=== PATIENT | female | born 1980 | race Caucasian/White ===

== ENCOUNTER → 2017-01-12 | Outpatient (CLI) | payer OTHER ==
--- NOTE | 2017-01-12 16:03 | XR ---
EXAMINATION TYPE: XR finger LT DATE OF EXAM: 01/12/2017 COMPARISON: NONE HISTORY: Jammed finger, pain TECHNIQUE: 3 views left middle finger FINDINGS: There is an oblique fracture extending into the intra-articular surface of the posterior pr oximal portion distal phalanx left middle finger. Subtle diastases is present. Soft tissues are normal. IMPRESSION: 1. Fracture of the dorsal proximal distal phalanx middle finger with intra-articular extension.
== END | disposition home or self-care (01) ==
LOC: RADXRYALE 09:58
PROVIDERS: ATTEND Physician Assistant Medical
DX: S62.633A Displaced fracture of distal phalanx of left middle finger, initial encounter for closed fracture (principal); X58.XXXA Exposure to other specified factors, initial encounter

== ENCOUNTER → 2017-08-18 | Outpatient (CLI) | payer OTHER ==
--- NOTE | 2017-08-18 09:46 | XR ---
EXAMINATION TYPE: XR hand complete RT, XR finger RT DATE OF EXAM: 08/18/2017 CLINICAL HISTORY: Right hand in particular thumb pain after volleyball injury. TECHNIQUE: Frontal, lateral and oblique images of the right hand are obtained. Frontal and lateral i mages of the right thumb are obtained. COMPARISON: None. FINDINGS: There is no acute fracture/dislocation evident in the right hand. The joint spaces in the right hand appear within normal limits. The overlying soft tissue appears unremarkable. Images of right thumb show no acute fracture or dislocation. Overlying soft tissue is unremarkable. J oint spaces are preserved. IMPRESSION: There is no acute fracture or dislocation in the right thumb or hand.
== END | disposition home or self-care (01) ==
LOC: RADXRYALE 09:12
PROVIDERS: ATTEND Physician Assistant Medical
DX: S60.931A Unspecified superficial injury of right thumb, initial encounter (principal)

== ENCOUNTER → 2017-10-12 | Outpatient (CLI) | payer OTHER ==
--- NOTE | 2017-10-12 17:51 | CONS ---
CONSULTATION REASON FOR CONSULTATION: Consultation done for sleep apnea. 37-year-old female patient, obese, works at [employer] [facility]. Referred to me for evaluation of sleep apnea. The patient has loud snoring and she has been snoring since 2012 really bad. She lost some weight. Overall she has gained a total of 50 pounds since 2007. She at times wakes up in the middle of night choking and this has occurred 3 times. The last being last night. No nocturia. No episodes of waking up gasping for air. She dreams a lot and she occasionally sleep talks. During the day, she wakes up tired. She has to wait until her gets back from work and for that reason, she goes to bed late around 1:00 am, and she wakes up at 5:00 a.m. in the morning. Obviously she has a component of insufficient sleep syndrome. On weekends, she is compensating and she goes to bed between 1:00 am until 9:00 am in the morning. She can fall asleep easily within seconds and she is tired and sleepy during the day. No restlessness in the lower extremities. Sleep is fragmented at times she wakes up to urinate. She is drinking 4-5 cups of soda on a daily basis. No caffeine or alcohol intake. She cannot take any naps as the patient is quite busy at work. She has PCO and she is obese and she has also history of hypothyroidism. PAST MEDICAL HISTORY: 1. Obesity PCO obesity. 2. PCO. 3. Hypothyroidism. SURGICAL HISTORY: Includes cholecystectomy. DRUG ALLERGIES: Not known. OUTPATIENT MEDICATION: Includes Synthroid 50 mcg p.o. daily, metformin 500 mg at bedtime. Vitamin D3 5000 units daily. Drug allergies are not known. SOCIAL HISTORY: Nonsmoker, no history of alcohol. No history of IV drugs. FAMILY HISTORY: Father has obstructive sleep apnea. Wears CPAP. REVIEW OF SYSTEMS: 12-point review of system was done. Positive findings are mentioned above in the history of present illness. PHYSICAL EXAMINATION: BP is 136/80, pulse 92, respirations 16, temperature 98.1. Saturation 97% on room air. Weight is 283, height is 5 feet, 3 inches, BMI of 49, neck size 17 inches. Brandamore score is 8. General appearance: Calm, comfortable. Head is atraumatic, normocephalic. NECK: Supple. Overbite. Mallampati class 2-3. No goiter or neck masses. LUNGS: Clear to auscultation. HEART: Sounds regular rate and rhythm. Normal S1, S2. No S3. No murmurs. ABDOMEN: Soft, nontender. No organomegaly. EXTREMITIES: No edema. No cyanosis or clubbing. NEUROLOGIC: The patient is alert and oriented x3. There is no focal neurological deficits. Psychiatric: The patient has no anxiety or depression. IMPRESSION: 1. Obstructive sleep apnea clinically suspected, currently under investigation. 2. Mouth breather with an overbite and Mallampati class 2-3. 3. Obesity BMI of 49. 4. Hypersomnia and fatigue with an Brandamore score of 8. 5. PCO. 6. Hypothyroidism. PLAN: 1. Encourage weight loss. 2. Eliminate caffeinated beverages. 3. Extend sleep hours as the patient has an obvious component of insufficient sleep syndrome and she is averaging around 5-6 hours, would like to ask her to sleep 7 hours at least and she has to go to bed earlier if possible. 4. Proceed with a screening polysomnogram looking for sleep apnea. The patient has clinical anatomic features to suggest that. MMODL / IJN: [id number] /
== END | disposition home or self-care (01) ==
LOC: SLEEP 16:21
PROVIDERS: ATTEND Internal Medicine Critical Care Medicine
DX: G47.10 Hypersomnia, unspecified (principal); E66.9 Obesity, unspecified; E03.9 Hypothyroidism, unspecified; E28.2 Polycystic ovarian syndrome; Z68.42 Body mass index [BMI] 45.0-49.9, adult; Z79.899 Other long term (current) drug therapy; Z79.84 Long term (current) use of oral hypoglycemic drugs; Z90.49 Acquired absence of other specified parts of digestive tract
CPT/HCPCS: 99211

== ENCOUNTER → 2018-03-07 | Outpatient (CLI) | payer OTHER ==
--- NOTE | 2018-03-07 16:29 | PN ---
PROGRESS NOTE This is a compliancy check on this 37-year-old female patient who was diagnosed having obstructive sleep apnea which is severe. She is coming in for a compliancy check regarding her new CLARISSE treatment. The patient has severe CLARISSE with an AHI of 13 and she was titrated to a CPAP pressure of 13 cm of water. She is benefitting from treatment. She feels great; much more refreshed and alert during the day. Sleep quality is improved. Only complaint is aerophagia. She also eliminated the RAMP, as the patient was feeling that the pressure was too low at the start of the treatment. Based on 30- day compliancy, she has been hitting more than 4 hours 73% of the time. Her average CPAP use is 5 hours and 19 minutes. Her use is 90% of the time, which is 27/30. Her AHI while on treatment is down to 0.8. Leak factor is 9.2 L. She has no major complaints. She is benefitting from treatment and she is quite happy and content. REVIEW OF SYSTEMS: Twelve-point review of systems was done. Positive for aerophagia. No nausea. No vomiting. No diarrhea. No flatus. There is occasional abdominal distention following CPAP therapy. No headaches. No altered mentation. No restlessness in the lower extremities. No falls. No difficulties with memory or concentration. Sleep quality is improved. No heartburn. No chest pain. No shortness of breath. No difficulties with concentration or memory. PHYSICAL EXAMINATION: BP is 117/73, pulse 88, respirations 16. [place] score is 6. Saturation is 98% on room air. Weight is 295. GENERAL APPEARANCE: Calm, comfortable. HEAD: Atraumatic, normocephalic. NECK: Supple. No JVD. No goiter or masses. Mallampati class IV. LUNGS: Clear to auscultation. HEART: Heart sounds are regular rate and rhythm. Normal S1, S2. No S3. There are no murmurs. ABDOMEN: Soft, nontender. No organomegaly. EXTREMITIES: No edema. No cyanosis or clubbing. NEUROLOGIC: Alert and oriented x3. No focal neurological deficit. IMPRESSION: 1. Severe obstructive sleep apnea with an AHI of 33, currently on CPAP with a pressure of 13. 2. Aerophagia. 3. PCO. 4. Obesity with a body mass index of 50. 5. Hypersomnia, recovered. 6. Hypothyroidism. PLAN: 1. Drop CPAP pressure down to 11 cm of water. 2. This will be temporary, just to assess the patient's symptoms of aerophagia. Will decide on the final target pressure accordingly based on her clinical response and based on the observed side effects. In general she is benefitting from treatment and she feels much better. CARITO / JOSEN: [id number] /
== END | disposition home or self-care (01) ==
LOC: SLEEP 13:10
PROVIDERS: ATTEND Internal Medicine Critical Care Medicine
DX: G47.33 Obstructive sleep apnea (adult) (pediatric) (principal); F45.8 Other somatoform disorders; H26.499 Other secondary cataract, unspecified eye; E03.9 Hypothyroidism, unspecified; E66.9 Obesity, unspecified; Z68.43 Body mass index [BMI] 50.0-59.9, adult; Z99.89 Dependence on other enabling machines and devices

== ENCOUNTER → 2018-06-06 | Outpatient (CLI) | payer OTHER ==
--- NOTE | 2018-06-06 18:35 | PN ---
PROGRESS NOTE Mela is 37, works in a group home, diagnosed having obstructive sleep apnea, severe, with an AHI of 33, initially treated with CPAP pressure of 13. She had difficulty tolerating the treatment and she was dropped down to 11. Since then she is doing great, waking up much more alert and awake. She is able to tolerate the treatment. Much more refreshed during the day. She does not fall asleep during day-to- day activities. Her weight is up from 283 to 296 and she has gained around 13 pounds following Thanksgiving. Compliance data show that the patient has been averaging more than 6.0 hours per night. Her CPAP use for more than 4 hours is above 90%. Leak is 26 L/minute. AHI is down to 0.7 while on treatment. She has no complaints. REVIEW OF SYSTEMS: Twelve-point review of systems was done. Positive findings were all mentioned above in the history of present illness. She is doing extremely well. PHYSICAL EXAMINATION: BP is 136/91, pulse 90, respirations 18, temperature 98.2, saturation 97% on room air. Height is 5 feet 3 inches, weight is 296, BMI is 51.2. [place] score is 6. GENERAL APPEARANCE: Calm, comfortable. HEENT: Head is atraumatic, normocephalic. NECK: Supple. There is no JVD. No goiter or neck mass. LUNGS: Diminished breath sounds bilaterally; otherwise clear. HEART: Heart sounds are regular rate and rhythm. Normal S1, S2. No S3, S4. No murmurs. ABDOMEN: Soft, nontender. No organomegaly. EXTREMITIES: No edema. No cyanosis or clubbing. NEUROLOGIC: The patient is alert and oriented x3. There is no focal neurological deficit. PSYCHIATRIC: No anxiety or depression. IMPRESSION: 1. Severe obstructive sleep apnea with an apnea/hypopnea index of 33, currently on CPAP with a pressure of 11, with excellent clinical response and compliancy. 2. Hypersomnia, recovered. 3. Obesity with interval 13-pound weight gain. BMI is up to 51 with a weight of 296. 4. Polycystic ovary syndrome. 5. Hypothyroidism. PLAN: 1. Continue CPAP therapy at the same level of pressure. 2. Encourage weight loss. 3. Implement good sleep hygiene measures. 4. Weight loss. 5. Treatment is successful. The patient is benefitting from treatment. We will continue to follow and make further recommendations based on the patient's progress. MMODL / IJN: [id number] /
== END ==
LOC: SLEEP 16:42
PROVIDERS: ATTEND Internal Medicine Critical Care Medicine
DX: G47.33 Obstructive sleep apnea (adult) (pediatric) (principal); E66.9 Obesity, unspecified; E28.2 Polycystic ovarian syndrome; E03.9 Hypothyroidism, unspecified; Z68.43 Body mass index [BMI] 50.0-59.9, adult; Z99.89 Dependence on other enabling machines and devices

== ENCOUNTER → 2023-06-15 | Outpatient (CLI) | payer OTHER ==
--- NOTE | 2023-06-15 17:12 | XR ---
EXAMINATION TYPE: XR chest 2V DATE OF EXAM: 06/15/2023 COMPARISON: INDICATION: Bronchopneumonia TECHNIQUE: Frontal and lateral views of the chest are obtained. FINDINGS: The heart size is normal. The pulmonary vasculature is normal. The lungs are clear. IMPRESSION: 1. No acute pulmonary process.
== END | disposition home or self-care (01) ==
LOC: RADXRYALE 15:47
PROVIDERS: ATTEND Physician Assistant
DX: J18.0 Bronchopneumonia, unspecified organism (principal)
CPT/HCPCS: 71046

== ENCOUNTER → 2024-01-17 | Outpatient (CLI) | payer BC ==
--- NOTE | 2024-01-26 07:13 | MM ---
Reason for Exam: Screening (asymptomatic). Baseline mammogram. Patient History: Menarche at age 14. Patient has no children. Last menstrual period: 01/14/2024 Risk Values: Camilla 5 year model risk: 0.7%. NCI Lifetime model risk: 11.0%. Prior Study Comparison: Patient's first Mammogram. Tissue Density: There are scattered areas of fibroglandular density. Findings: Analyzed By CAD. The pattern is symmetrical. There circumscribed areas upper outer aspect bilateral breasts may be intramammary lymph nodes. No suspicious groups of microcalcifications, spiculated or lobular masses, architectural distortion or other secondary signs of malignancy are mammographically apparent. Overall Assessment: Benign, BI-RAD 2 Management: Screening Mammogram of both breasts in 1 year. A negative mammogram report should not preclude additional follow up of suspicious palpable abnormalities. Patient should continue monthly self breast exam. A clinical breast exam by your physician is recommended on an annual basis and results should be correlated with mammographic findings. Note on Camilla scores and lifetime risk: 1. A Camilla score greater than 3% is considered moderate risk. If this is the case, consider specialist referral to assess eligibility for a risk reducing agent. 2. If overall lifetime risk for the development of breast cancer is 20% or higher, the patient may qualify for future screening with alternating mammogram and breast MRI. Electronically signed and approved by: Hermilo Giron D.O. Radiologis
--- NOTE | 2024-01-30 07:04 | CT ---
EXAMINATION TYPE: CT soft tissue neck w con DATE OF EXAM: 01/17/2024 COMPARISON: None HISTORY: swelling, mass/lump neck region. Three areas of concern by patient marked with BBs, one bein g back of neck. Pt has history of thyroid concerns. CT DLP: 831.10 mGycm CONTRAST: Patient injected with 100 mL of Isovue 300. TECHNIQUE: Axial images at 3 mm thick sections. Reconstructed images in the coronal plane and sagitt al plane are reviewed. FINDINGS: Limited CT sections are obtained the lung apices. The lung apices appear clear. CT neck: The torus tubarius and fossa of Rosenmuller are normal. [employer] spaces are normal. Para nasal sinuses and mastoid air cells are clear. Parotid glands appear normal and symmetrical. Submandibular glands, are normal. Parapharyngeal spac es are normal. No suspicious adenopathy is evident. There is some asymmetry of the posterior lateral left hypopharynx. Example image Series 3 image 66. D irect visualization recommended. Vocal cord level appear symmetrical. Subglottic airway is normal Thyroid as visualized is normal. BBs marking palpable regions and include a left submandibular region. No underlying suspicious adenop athy or mass is evident. Scattered small lymph nodes are present at this level. Right submandibular r egion likewise appears unremarkable marked with a BB. A right posterior lateral neck be the appears n ormal without underlying masses Osseous structures are normal. IMPRESSION: 1. No suspicious abnormalities at the palpable marker regions. 2. Asymmetry of the left posterior lateral hypopharynx. Direct visualization recommended
== END | disposition home or self-care (01) ==
LOC: RADCTMAIN 13:03
PROVIDERS: ATTEND Family Medicine
DX: Z12.31 Encounter for screening mammogram for malignant neoplasm of breast (principal); R92.323 Mammographic fibroglandular density, bilateral breasts
CPT/HCPCS: 77067; 77063; 70491; Q9967

== ENCOUNTER → 2024-11-09 | Outpatient (CLI) | payer BC ==
--- NOTE | 2024-11-09 15:22 | XR ---
EXAMINATION TYPE: XR chest 2V DATE OF EXAM: 11/09/2024 1:45 PM COMPARISON: 06/15/2023 CLINICAL INDICATION: Female, 44 years old with history of R059 COUGH, , TECHNIQUE: Frontal and lateral views FINDINGS: The cardiomediastinal silhouette, aorta, and pulmonary vasculature are within normal limits. Similar hazy density at the apex of the heart suggestive of epicardial fat pad. Lungs and pleural spaces are otherwise clear. IMPRESSION: No acute cardiopulmonary process. [facility], , 11/09/2024 3:20 PM
== END | disposition home or self-care (01) ==
LOC: RADXRYALE 13:33
PROVIDERS: ATTEND Physician Assistant
DX: R05.9 Cough, unspecified (principal)
CPT/HCPCS: 71046